=== PATIENT | male | born 1985 | race Caucasian/White ===

== ENCOUNTER 2021-04-05 14:55 | Emergency (ER) | payer OTHER ==
[~2021-04-05] VITALS: Ht 175.3 cm; Wt 103.6 kg
--- NOTE | 2021-04-05 15:34 | PHYS DOC ---
Past History Past Medical History: Other Past Surgical History: No Surgical History Alcohol Use: Occasionally Drug Use: None Adult General Chief Complaint Chief Complaint: NAUSEA/VOMITING/DIARRHEA HPI HPI Patient is a 36-year-old male presenting for nausea vomit diarrhea. Patient reports he thinks he has food poisoning, he bought a jar of queso cheese dip and opened it on Monday, states he left it out without refrigeration and ate it again yesterday evening while watching a football game. Reports approximately 6 hours after finishing jar of queso dip he woke up at 3 AM with generalized nausea, he has subsequently had x2 episodes of nonbloody nonbilious emesis, generalized lower abdominal discomfort, and numerous episodes of looser stools than usual that have been nonbloody in etiology. Reports he has history of Crohn's disease that was diagnosed with colonoscopy approximately 10 years ago but has been in remission without any use of daily medications or biologic medications. He is otherwise been at baseline health with no recent sick contacts, he is up-to-date on all vaccinations including COVID-19 Review of Systems Review of Systems Fourteen body systems of review of systems have been reviewed. See HPI for pertinent positives and negative responses, other taylor all other systems are negative, non-pertinent or non-contributory Allergies Allergies Allergies Coded Allergies Type Severity Reaction Last Updated Verified Penicillins Allergy Mild 04/05/21 Yes Physical Exam Physical Exam Constitutional: Well developed, well nourished, no acute distress, non-toxic appearance. HENT: Normocephalic, atraumatic, bilateral external ears normal, oropharynx moist, no oral exudates, nose normal. Eyes: PERRLA, EOMI, conjunctiva normal, no discharge. Neck: Normal range of motion, no tenderness, supple, no stridor. Cardiovascular: Heart rate regular, sinus rhythm, no murmurs rubs or gallops Lungs & Thorax: Bilateral breath sounds clear to auscultation Abdomen: Bowel sounds normal, soft, no tenderness, no masses, no pulsatile masses. Nonsurgical abdomen, no peritoneal signs Skin: Warm, dry, no erythema, no rash. Back: No tenderness, no CVA tenderness. Extremities: No tenderness, no cyanosis, no clubbing, ROM intact, no edema. Neurologic: Alert and oriented X 3, grossly normal motor & sensory function, no focal deficits noted. Psychologic: Affect normal, judgement normal, mood normal. Current Patient Data Vital Signs Vital Signs Date Time Temp Pulse Resp B/P (MAP) Pulse Ox O2 Delivery O2 Flow Rate FiO2 04/05/21 15:00 97.4 99 18 144/97 (113) 98 Room Air Vital Signs Date Time Temp Pulse Resp B/P (MAP) Pulse Ox O2 Delivery O2 Flow Rate FiO2 04/05/21 16:54 18 96 Room Air 04/05/21 15:00 97.4 99 144/97 (113) Lab Results Laboratory Tests Test 04/05/21 15:32 White Blood Count 16.9 x10^3/uL Red Blood Count 5.27 x10^6/uL Hemoglobin 16.1 g/dL Hematocrit 47.2 % Mean Corpuscular Volume 90 fL Mean Corpuscular Hemoglobin 31 pg Mean Corpuscular Hemoglobin Concent 34 g/dL Red Cell Distribution Width 13.1 % Platelet Count 309 x10^3/uL Neutrophils (%) (Auto) 87 % Lymphocytes (%) (Auto) 6 % Monocytes (%) (Auto) 4 % Eosinophils (%) (Auto) 2 % Basophils (%) (Auto) 1 % Neutrophils # (Auto) 14.8 x10^3uL Lymphocytes # (Auto) 1.0 x10^3/uL Monocytes # (Auto) 0.7 x10^3/uL Eosinophils # (Auto) 0.3 x10^3/uL Basophils # (Auto) 0.1 x10^3/uL Platelet Estimate Pending Sodium Level 140 mmol/L Potassium Level 3.3 mmol/L Chloride Level 102 mmol/L Carbon Dioxide Level 27 mmol/L Anion Gap 11 Blood Urea Nitrogen 11 mg/dL Creatinine 1.1 mg/dL Estimated GFR (Cockcroft-Gault) 76.2 BUN/Creatinine Ratio 10 Glucose Level 114 mg/dL Calcium Level 8.9 mg/dL Total Bilirubin 0.5 mg/dL Aspartate Amino Transf (AST/SGOT) 21 U/L Alanine Aminotransferase (ALT/SGPT) 66 U/L Alkaline Phosphatase 95 U/L Total Protein 7.5 g/dL Albumin 4.0 g/dL Albumin/Globulin Ratio 1.1 Current Medications Medications (Trade) Dose Ordered Sig/Gerson Route PRN Reason Start Time Stop Time Status Last Admin Dose Admin Sodium Chloride 1,000 ml @ 1,000 mls/hr 1X ONCE IV 04/05/21 15:45 1/17/22 16:44 DC 04/05/21 15:46 Ondansetron HCl (Zofran) 4 mg 1X ONCE IVP 04/05/21 15:45 04/05/21 15:46 DC 04/05/21 16:00 Fentanyl Citrate (Fentanyl 2ml Vial) 75 mcg 1X ONCE IVP 04/05/21 15:45 04/05/21 16:05 DC 04/05/21 16:54 Potassium Chloride (Klor-Con) 40 meq 1X ONCE PO 04/05/21 17:00 04/05/21 17:01 UNV EKG EKG [] Radiology/Procedures Radiology/Procedures [] Heart Score C/O Chest Pain: No Risk Factors: Risk Factors: DM, Current or recent (<one month) smoker, HTN, HLP, family history of CAD, obesity. Risk Scores: Risk Factors: DM, Current or recent (<one month) smoker, HTN, HLP, family history of CAD, obesity. Course & Med Decision Making Course & Med Decision Making ABCs unremarkable HPI physical exam and comprehensive ER work-up grossly nonconcerning for any emergent or surgical issues Joint decision made to defer any further diagnostic work-up such as imaging of abdomen given patient's benign nonacute abdomen on physical exam and the fact that his symptoms resolved with provided ER intervention Patient aware this might be an acute presentation more concerning pathology and so, continued supportive care practices extremely close PCP and GI follow-up recommended Strict return precautions discussed at length prior to ER departure Shelli Disclaimer [place] Disclaimer This electronic medical record was generated, in whole or in part, using a voice recognition dictation system. Departure Departure: Impression: Primary Impression: Nausea, vomiting, and diarrhea Additional Impression: Hypokalemia Disposition: HOME / SELF CARE / HOMELESS Condition: IMPROVED Referrals: VIRGINIA QURESHI DO (PCP) Patient Instructions: Nausea and Vomiting Additional Instructions: You were seen for nausea and vomiting. You most likely have a viral illness which should resolve in the next few days to a week. You should contact your primary care physician first thing in the morning to review ER visit today and need for close repeat evaluation in outpatient setting this week for repeat electrolyte dropped to recheck your potassium level in the setting of recent vomiting and diarrhea. You should return to the ED if you develop abdominal pain, fever > 100.3, black/bloody stools, black/bloody vomiting, cannot keep water down, or any other new or concerning symptoms. Scripts Ondansetron (ONDANSETRON ODT) 4 Mg Tab.rapdis 1 TAB PO PRN Q6-8HRS for nausea, #16 TAB Prov: POWER FAYE DO 04/05/21 Problem Qualifiers POWER FAYE DO Apr 05, 2021 15:34
[2021-04-05] MEDS ORDERED: ONDANSETRON PF 4 MG/2 ML VIAL. IVP ONE (15:45)
[2021-04-05] MEDS ORDERED: IV NORMAL SALINE 1,000ML 1,000 ML IV ONE (15:45)
[2021-04-05 16:07] LABS: BASO # 0.1 x10^3/uL (0.0-0.2); BASO % 1 % (0-3); EOS # 0.3 x10^3/uL (0.0-0.7); EOS % 2 % (0-3); HEMATOCRIT 47.2 % (39.0-53.0); HEMOGLOBIN 16.1 g/dL (13.0-17.5); LYMPH % 6 % (24-48); MEAN CORPUSCULAR HEMOGLOBIN 31 pg (25-35); MEAN CORPUSCULAR HGB CONC 34 g/dL (31-37); MEAN CORPUSCULAR VOLUME 90 fL (79-100); MONO # 0.7 x10^3/uL (0.0-1.1); MONO % 4 % (0-9); NEUT # 14.8 x10^3uL (1.8-7.7); NEUT % 87 % (31-73); PLATELET COUNT 309 x10^3/uL (140-400); RED BLOOD COUNT 5.27 x10^6/uL (4.30-5.70); RED CELL DISTRIBUTION WIDTH 13.1 % (11.5-14.5); WHITE BLOOD COUNT 16.9 x10^3/uL (4.0-11.0)
[2021-04-05 16:31] LABS: CALCIUM 8.9 mg/dL (8.5-10.1); CREATININE 1.1 mg/dL (0.7-1.3); GFR 76.2; POTASSIUM 3.3 mmol/L (3.5-5.1)
[2021-04-05 16:37] LABS: ALBUMIN/GLOBULIN RATIO 1.1 (1.0-1.7); TOTAL BILIRUBIN 0.5 mg/dL (0.2-1.0); TOTAL PROTEIN 7.5 g/dL (6.4-8.2)
[2021-04-05 16:47] VITALS: BP 142/88
[2021-04-05] MEDS ORDERED: ONDA4TAB12 PO (16:57)
[2021-04-05] MEDS ORDERED: POTASSIUM CHLORIDE 20 MEQ TABLET.ER. PO ONE (17:00)
[2021-04-05 17:16] LABS: % EOS 1 % (0-5); % LYMPHS 6 % (24-48); % MONOS 5 % (0-10); % SEGS 88 % (35-66); PLT ESTIMATE ADEQUATE (ADEQUATE)
== END 2021-04-05 17:22 | disposition home or self-care (01) ==
LOC: ER 14:55
DX: E87.6 Hypokalemia (principal); R11.2 Nausea with vomiting, unspecified; R19.7 Diarrhea, unspecified; Z88.0 Allergy status to penicillin
CPT/HCPCS: 36415; 80053; 85007; 85025; 96361; 96374; 96375; 99284; J2405; J3010; J7030